=== PATIENT | male | born 1985 | race Two or more races ===

== ENCOUNTER 2017-08-07 15:16 | Emergency (ER) | payer SELFPAY ==
[~2017-08-07] VITALS: Ht 177.8 cm; Wt 136.1 kg
[2017-08-07 16:53] LABS: Basophils # (auto) 0 uL; Basophils % (auto) 0.3 % (0.0-2.0); Eosinophils # (auto) 0 uL
[2017-08-07 16:58] LABS: Eosinophils % (auto) 0.2 % (0.0-7.0); Hemoglobin 14.6 g/dL (13.5-17.5); Lymphocytes # (auto) 1.7 uL; Mean Corpuscular Hemoglobin 27.6 pg (28.0-32.0); Mean Corpuscular Hgb Conc. 33.9 g/dL (32.0-36.0); Mean Corpuscular Volume 81.4 fL (80.0-100.0); Monocytes # (auto) 1.6 uL; Monocytes % (auto) 10.5 % (0.0-12.0); Neutrophils # (auto) 11.9 uL; Nucleated Red Blood Cells % 0.3 %; Platelet Count (auto) 291 10^3/uL (140-450); Red Blood Cells 5.28 10^6/uL (4.5-5.90); Red Cell Distribution Width 15.2 % (11.8-14.3); White Blood Cell 15.3 10^3/uL (4.4-10.8)
[2017-08-07 17:15] LABS: Albumin 3.6 g/dL (3.4-5.0); BUN/Creatinine Ratio 7.6; Bilirubin, Total 0.4 mg/dL (0.2-1.0); Calcium 9.7 mg/dL (8.5-10.1); Potassium 3.6 mmol/L (3.5-5.1); Total Protein 9.3 g/dL (6.4-8.2)
[2017-08-07 18:10] VITALS: BP 130/83
[2017-08-07 19:05] LABS: Urine Bacteria NONE SEEN /hpf (None Seen); Urine Blood TRACE /uL (Negative); Urine Mucus FEW (None Seen); Urine Specific Gravity 1.026 (1.001-1.035); Urine WBC 4 /hpf (0 - 3)
== END 2017-08-07 19:42 | disposition home or self-care (01) ==
LOC: ER 15:25
DX: K42.9 Umbilical hernia without obstruction or gangrene (principal); K43.9 Ventral hernia without obstruction or gangrene; N39.0 Urinary tract infection, site not specified; J18.0 Bronchopneumonia, unspecified organism; H66.91 Otitis media, unspecified, right ear; F17.210 Nicotine dependence, cigarettes, uncomplicated
CPT/HCPCS: 36415; 74176; 80053; 81001; 85025